=== PATIENT | female | born 1965 | race Caucasian/White ===

== ENCOUNTER → 2019-06-01 | Outpatient (CLI) | payer BC ==
--- NOTE | 2019-06-01 15:59 | MR ---
EXAMINATION TYPE: MR knee LT wo con DATE OF EXAM: 06/01/2019 COMPARISON: Outside x-rays dated 05/15/2019 HISTORY: Left knee pain TECHNIQUE: Multiplanar, multisequence imaging of the left knee is performed without IV contrast. FINDINGS: MEDIAL MENISCUS: There is a radial tear of the free edge of the posterior horn of the medial meniscus . LATERAL MENISCUS: There is a radial tear of the free edge of the posterior horn of the lateral menisc us and discoid morphology. Additional oblique tear of the posterior horn as seen on coronal image 18. CRUCIATE LIGAMENTS: The anterior and posterior cruciate ligaments are intact and unremarkable. COLLATERAL LIGAMENTS: The medial collateral ligament and lateral collateral ligament complex are inta ct and unremarkable. EXTENSOR MECHANISM: Visualized quadriceps and patellar tendons are intact. EFFUSION: Physiologic amount of suprapatellar joint fluid. POPLITEAL CYST: Trace amount of fluid between the semimembranosus and medial head of the gastric anem ias. No sizable discrete popliteal/colindres cyst. TRICOMPARTMENT SPACES: There are mild tricompartmental osteophytes. Posterior to the medial compartme nt and PCL multiloculated ganglion is seen. This is T2 hyperintense and T1 hypointense. CARTILAGE: Near full-thickness defect is seen in the weightbearing surface of the medial femoral cond yle measuring 1.0 x 0.5 cm and more anteriorly of the medial femoral condyle measuring 0.4 cm. Diffus e chondral heterogeneity is seen of both the medial and lateral compartments. Patellofemoral compartm ent demonstrates chondral heterogeneity as well without focal full-thickness tear/defect. BONE MARROW SIGNAL: No focal abnormal marrow signal is appreciated. OTHER: There is mild atrophy of the vastus lateralis and undulation of the distal tendon with focal a moisés of discontinuity. Old focal tear is suspected of the myotendinous junction. No current overlying subcutaneous edema. IMPRESSION: 1. Radial tear of the posterior horn of the free edge of the both the medial meniscus and lateral men iscus with discoid morphology of the lateral meniscus. Additional oblique tear of the posterior horn as seen on coronal imaging. 2. There appears to be a partial thickness low-grade tear of the vastus lateralis myotendinous juncti on. 3. Near full-thickness cartilaginous defect of the weightbearing surface of the medial femoral condyl e measuring 1.0 x 0.5 cm.
== END | disposition home or self-care (01) ==
LOC: RADMRIMAIN 10:36
PROVIDERS: ATTEND Orthopaedic Surgery
DX: S83.242A Other tear of medial meniscus, current injury, left knee, initial encounter (principal); S83.282A Other tear of lateral meniscus, current injury, left knee, initial encounter; S76.822A Laceration of other specified muscles, fascia and tendons at thigh level, left thigh, initial encounter; M94.8X8 Other specified disorders of cartilage, other site

== ENCOUNTER 2019-09-10 09:01 | Day surgery (SDC) | payer BC, OTHER ==
[2019-09-09 11:20] VITALS: BMI 29.1
--- NOTE | 2019-09-09 14:46 | HP ---
HISTORY AND PHYSICAL DATE OF SURGERY: 09/10/2019 Kailey Hodge is a 54-year-old patient seen with progressive left knee pain. We discussed options for treatment. She elected to proceed with arthroscopy. Consent was obtained. PAST MEDICAL HISTORY: Noncontributory. PAST SURGICAL HISTORY: Carpal tunnel release. DAILY MEDICATIONS: None. ALLERGIES: None reported. SOCIAL HISTORY: She denies tobacco use. PHYSICAL EVALUATION OF THE LEFT KNEE: Range of motion is -3 to 110. Mild effusion. Tenderness medial joint line. Positive medial Sofía's. Ligaments stable. Hip rotation without pain. Distal neurovascular exam is intact. RADIOGRAPHS OF THE LEFT KNEE: Revealed mild osteoarthritis of the left knee. MRI revealed medial and lateral meniscal tears. IMPRESSION: Internal derangement, left knee with medial and lateral meniscal tears. PLAN: Left knee arthroscopy with partial meniscectomy, partial synovectomy and debridement. MMODL / IJN: [id number] /
[~2019-09-10 09:01] MED LIST: DEXAMETHASONE SOD PHOSPHATE 10 MG/ML 1 ML VIAL IV ONE; LACTATED RINGERS 1,000 ML IV SCH; LIDOCAINE 1% 20 ML VIAL (10MG/ML) FOR IV START INTRADERMA PRN; MIDAZOLAM 2 MG/2 ML VIAL IV PRN; ONDANSETRON 4 MG/2 ML VIAL IVP ONE; fentaNYL (PF) 50 MCG/ML 2 ML AMP IV PRN
[2019-09-10] MEDS ORDERED: MIDAZOLAM 2 MG/2 ML VIAL ONE (10:32)
[2019-09-10] MEDS ORDERED: LIDOCAINE 1% INJ 10MG/ML (20 ML MDV) ONE (10:32)
[2019-09-10] MEDS ORDERED: ONDANSETRON 4 MG/2 ML VIAL ONE (10:32)
[2019-09-10] MEDS ORDERED: PROPOFOL 10 MG/ML 20 ML VIAL IV ONE (10:32)
[2019-09-10] MEDS ORDERED: DEXAMETHASONE SOD PHOS (MDV) 100 MG/10 ML VIAL ONE (10:32)
[2019-09-10] MEDS ORDERED: fentaNYL (PF) 50 MCG/ML 2 ML AMP ONE (10:32)
[2019-09-10] MEDS ORDERED: BUPIVACAINE (PF) 0.25% 30 ML VIAL SQ ONE ×2 (10:58→11:10)
[2019-09-10] MEDS: HYDROmorphone 0.5 MG/0.5 ML SYRINGE IVP PRN ×5 (11:20→12:02)
--- NOTE | 2019-09-10 11:23 | P.OP ---
Date of Procedure: 09/10/19 Preoperative Diagnosis: Internal derangement left knee Postoperative Diagnosis: 1. Tear medial meniscus left knee 2. Grade 3/4 chondromalacia medial femoral condyle left knee 3. Grade 2/3 chondromalacia patella left knee 4. Reactive synovitis medial, lateral and suprapatellar compartments left knee Procedure(s) Performed: 1. Arthroscopic partial medial meniscectomy left knee 2. Arthroscopic chondroplasty medial femoral condyle left knee 3. Arthroscopic microfracture condyle left knee 4. Arthroscopic chondroplasty patella left knee 5. Arthroscopic partial synovectomy medial, lateral and suprapatellar compartments left knee Anesthesia: UZMA, local Surgeon: Tk Jones Estimated Blood Loss (ml): 8 Pathology: none sent Condition: stable Disposition: PACU Indications for Procedure: 54-year-old patient seen with progressive left knee pain. After treatment o ptions were discussed with her, she elected to proceed with arthroscopy. Operative Findings: See description of procedure Description of Procedure: Patient was taken to the operative suite. Patient underwent a general anesthetic by the department of anesthesia. Patient was given preoperative antibiotics. The left lower extremity was placed in a well-padded arthroscopic leg nunez. The left leg was prepped and draped in the normal sterile orthopedic fashion. A lateral parapatellar and suprapatellar incision was made. Trochars were inserted. Arthroscopy was initiated. Suprapatellar pouch revealed diffuse thick reactive synovitis. The patellofemoral joint appeared to articulate congruently. There was grade 3/4 chondromalacia of the patella with some osteochondral tears mainly involving the lateral facet. The scope was guided into the medial gutter. No loose bodies were identified. No plica was identified. The scope was then guided into the medial compartment. A medial parapatellar incision was made. Trocar inserted followed by probe. It was a radial tear involving the posterior horn medial meniscus. There were grade 3/4 chondromalacia changes the medial femoral condyle with significant large osteochondral flap tears. There was reactive synovitis anteriorly. I performed a partial medial meniscectomy. I performed a chondroplasty of the medial femoral condyle. I performed a partial synovectomy decompressing the reactive synovitis. There was an area of exposed bone along the medial femoral condyle measuring approximately 1 cm. I performed a microfracture to area penetrating the bone with resultant bleeding of the microfracture site. The residual osteochondral surface of the femoral condyle was stable. The residual meniscal tissue was stable. There was good decompression of synovitis. Scope and probe were then guided into the intercondylar notch. Cruciates were identified, probed and found to be table. The scope and probe were then guided into lateral compartment. There were grade 1/2 chondromalacia changes lateral compartment with no osteochondral tears present. There was thick reactive synovitis anteriorly. The meniscus was found to be stable. I performed a partial synovectomy decompressing reactive synovitis. There was good decompression of synovitis. The scope was in guided back into the suprapatellar compartment. I introduced a motorized shaver into the super patellar compartment. I debrided some piecemeal fragments of meniscus I encountered. I performed a chondroplasty of the patella. I performed a partial synovectomy. Shaver was removed. I took one more look on the entire knee, no residual debris. Instruments were now removed from the joint. The joint was infiltrated with .25% Marcaine. Steri- Strips were applied to the portal sites. Sterile dressings were applied. The patient was placed into a JUAN hose. No tourniquet was utilized. The patient was awakened, transferred to a bed and taken to recovery stable satisfactory condition.
[2019-09-10 11:24] VITALS: TEMP 98
[2019-09-10] MEDS ORDERED: KETOROLAC 30 MG/ML 1 ML VIAL IVP ONE (11:35)
[2019-09-10] MEDS ORDERED: HYDROcodone/APAP 5-325MG 1 EACH TAB PO ONE (12:15)
[2019-09-10] MEDS ORDERED: ONDANSETRON ODT 4 MG TAB PO ONE (13:01)
[2019-09-10 13:38] VITALS: BP 109/57; PULSE 67; RESP 16
== END 2019-09-10 14:08 | disposition home or self-care (01) ==
LOC: OR 09:01
PROVIDERS: ATTEND Orthopaedic Surgery
DX: S83.207A Unspecified tear of unspecified meniscus, current injury, left knee, initial encounter (principal); X58.XXXA Exposure to other specified factors, initial encounter; M22.42 Chondromalacia patellae, left knee; M65.862 Other synovitis and tenosynovitis, left lower leg
CPT/HCPCS: 29881; 29879; 29876; J2250; J1100 ×2; J0690; J2405; J2001; J3010; J1885; J2704; J1170